=== PATIENT | male | born 2005 | race Caucasian/White ===

== ENCOUNTER 2024-07-12 16:41 | Emergency (ER) | payer OTHER, BC ==
[~2024-07-12] VITALS: Ht 185.4 cm; Wt 78.0 kg
[2024-07-12] MEDS ORDERED: IBUPROFEN 600 MG TAB PO ONE (17:30)
[2024-07-12 18:20] VITALS: BP 145/83
== END 2024-07-12 18:21 | disposition home or self-care (01) ==
LOC: ED 16:41
DX: S43.402A Unspecified sprain of left shoulder joint, initial encounter (principal); X50.0XXA Overexertion from strenuous movement or load, initial encounter
CPT/HCPCS: 73030; 99283; A9270

== ENCOUNTER 2024-10-24 08:10 | Day surgery (SDC) | payer OTHER, BC ==
--- NOTE | 2024-10-19 09:03 | NUR ---
PHONE CALL TO PT WENT TO [facility]ICE [facility]IL, LEFT MESSAGE. [phone].
--- NOTE | 2024-10-20 11:08 | NUR ---
PHONE CALL TO [phone] LEFT MESSAGE WITH ALL INFORMATION ON WHAT IS NEEDED BEFORE SURGERY. TIME, SHOWER AND NPO AFTER MIDNIGHT ON THE 10-23-24. AND THAT INCLUDES NO SMOKING , GUM, OR CANDY. THEY MAY COME BY THE HOSPITAL TO THE YARD TRUCK DRIVER AND RFID MANAGER SOME HIBICLENS TO SHOWER WITH THE MORNING OF SURGERY.
[~2024-10-24] VITALS: Ht 185.4 cm; Wt 79.5 kg
[~2024-10-24 08:10] MED LIST: ADDERALL 20 MG20 MG PO; CEFAZOLIN SODIUM 2 GM/20 ML SYR IV SCH; DEXAMETHASONE SOD PHOS 4 MG/ML VIAL ONE; ESMOLOL HCL 100 MG/10 ML VIAL IV ONE; IBLOOD GLUCOSE TEST STRIP 1 EA TEST VI PRN; LACTATED RINGER'S 1,000 ML IV SCH; LIDOCAINE HCL 1% 5 ML SDV INJ ONE; LIDOCAINE HCL 2% 20 MG/ML VIAL INJ ONE; MIDAZOLAM HCL 2 MG/2 ML VIAL ONE; Ropivacaine HCl 0.5% 30 ML VIAL ONE; TRANEXAMIC ACID 1,000 MG/10 ML AMP ONE; TRANEXAMIC ACID IN NACL,ISO-OS 1,000 MG/100 ML PIGGYBACK IV SCH; fentaNYL citrate 100 MCG/2 ML VIAL ONE; ondansetron HCL 4 MG/2 ML VIAL ONE; propofoL 200 MG/20 ML VIAL ONE
[2024-10-24 08:30] VITALS: BP 132/81
[2024-10-24] MEDS ORDERED: HYDROCODONE/ACETA 7.5/325 TAB PO PRN (09:15)
[2024-10-24] MEDS ORDERED: ACETAMINOPHEN 1,000 MG/100 ML VIAL ONE (09:53)
[2024-10-24] MEDS ORDERED: IBLOOD GLUCOSE TEST STRIP 1 EA TEST VI PRN (10:15)
[2024-10-24] MEDS ORDERED: PROCHLORPERAZINE EDISYLATE 10 MG/2 ML VIAL IV PRN (10:15)
[2024-10-24] MEDS ORDERED: NALOXONE HCL 0.4 MG SYR IV PRN (10:15)
[2024-10-24] MEDS ORDERED: droPERidol 5 MG/2 ML VIAL IV PRN (10:15)
[2024-10-24] MEDS ORDERED: fentaNYL citrate 50 MCG/ML SDV IV PRN (10:15)
[2024-10-24] MEDS ORDERED: ondansetron HCL 4 MG/2 ML VIAL IV PRN (10:15)
[2024-10-24] MEDS ORDERED: HYDROmorphone HCL 1 MG/ML SYR IV PRN (10:15)
[2024-10-24] MEDS ORDERED: HYDROCODON-ACE1 EA11 PO (10:29)
[2024-10-24] MEDS ORDERED: CELECOXIB200 MG PO (10:29)
--- NOTE | 2024-10-24 10:38 | NUR ---
10/24/24 Laura Antony PATIENT ARRIVES IN PACU UNRESPONSIVE TO JAW THRUST. ATTEMPT TO RELEASE HOLD ON JAW RESULTS IN OBSTRUCTION. WILLIAM MEYERS IS HOLDING PATIENT'S JAW.
[2024-10-24] MEDS ORDERED: SEVOFLURANE 250 ML BTL INH ONE (10:48)
--- NOTE | 2024-10-24 11:09 | NUR ---
PT ARRIVES TO DS UNIT FROM PACU VIA STRETCHER. PT REPORTS NUMBNESS IN LFT ARM, ABLE TO SLIGHTLY MOVE FINGER, BUT UNABLE TO MOVE ARM. PT IS DROWSY, BUT ASKING APPROPRIATE QUESTIONS AT THIS TIME. PT ON RA W/O2 >90% VIA PULSE OX, RESPIRATIONS EVEN AND UNLABORED, NO SIGNS OF DISTRESS. CALL LIGHT WITHIN REACH, MOTHER AT BEDSIDE, REPORT RECEIVED FROM LEO THOMAS, SURGICAL SITES VISUALIZED W/LEO THOMAS.
[2024-10-24 11:14] VITALS: BP 122/58
--- NOTE | 2024-10-24 11:50 | NUR ---
IN PT ROOM FOR PAIN ASSESSMENT. PT STATES PAIN IS TOLERABLE AT THIS TIME, CMS INTACT, PT UNABLE TO LIFT ARM AT THIS TIME D/T NUMBNESS, CONTINUES TO BE ABLE TO WIGGLE A COUPLE FINGERS. PT CONSUMED ALL OF PUDDING AND CRACKERS AND CONTINUES TO DRINK ICE WATER. PT STATES NO FURTHER NEEDS OR QUESTIONS AT THIS TIME. CALL LIGHT WITHIN REACH, MOTHER AT BEDSIDE.
--- NOTE | 2024-10-24 12:05 | NUR ---
IN PT ROOM FOR VS AND ASSESSMENT. PT STATES PAIN REMAINS TOLERABLE. PT GETTING DRESSED W/MOTHER ASSISTANCE. CALL LIGHT WITHIN REACH.
--- NOTE | 2024-10-24 12:20 | NUR ---
THIS RN IN ROOM FOR DC EDUCATION AND ASSISTANCE W/SLING PLACEMENT POST GETTING DRESSED. PT STATES VERBAL UNDERSTANDING TO DC EDUCATION AT THIS TIME, MOTHER AT BEDSIDE. PT IV DC'ED. PT OFF OF UNIT VIA WC TO PASSENGER SIDE OF VEHICLE. ALL BELONGINGS IN PT POSSESSION AT THIS TIME INCLUDING PROVIDED CRYO CUFF. PT STATES NO FURTHER NEEDS AT THIS TIME.
[2024-10-24 14:00] VITALS: BP 110/53
[2024-10-24] MEDS ORDERED: CELECOXIB 200 MG CAP PO SCH (17:00)
--- NOTE | 2024-10-28 06:53 | OR ---
[facility] [address], [place] [address] Signed DATE OF OPERATION: 10/24/2024 SURGEON: Sri Rodney MD PREOPERATIVE DIAGNOSIS: Recurrent dislocation, left shoulder. POSTOPERATIVE DIAGNOSIS: Recurrent dislocation, left shoulder. PROCEDURE PERFORMED: Left shoulder arthroscopy with Bankart repair. SCHOOL PHOTOGRAPH EDITOR: None. ANESTHESIA: General. BLOOD LOSS: Minimal. IMPLANTS: Two Arthrex PushLock anchors. BRIEF HISTORY: Adolfo is a 19-year-old gentleman with recurrent injuries to his shoulder. He had significant laxity. MRI was consistent with a Bankart tear. Risks, benefits, and alternatives were discussed of surgery and he elected to proceed. Once consent was obtained, he was taken to the operating room. After adequate anesthesia, he was placed in the beach chair position. All downside pressure points were well padded. The left shoulder was prepped and draped in a standard sterile fashion. The shoulder was injected with 15 mL of 0.25% Marcaine as was the subacromial space. Standard posterior portal was established, and the scope was introduced in the shoulder. ARTHROSCOPIC FINDINGS: Mild synovitis was noted throughout with some hemosiderin staining. The labrum was noted to be torn from the 3 o'clock to the 6 o'clock position. The biceps, biceps anchor, and superior labrum were intact. The glenohumeral surfaces were intact. The rotator cuff was intact. Electronically Signed By: SRI RODNEY MD 10/28/24 0653 PATIENT NAME: ADOLFO COOPER OPERATIVE REPORT DATE OF : [birth year] REPORT #: [id number] PHYSICIAN: SRI RODNEY MD PCP: SRI MADRID MD REPORT IS CONFIDENTIAL AND NOT TO BE RELEASED WITHOUT AUTHORIZATION [facility] [address], [place] [address] Signed DESCRIPTION OF PROCEDURE: Standard anterior portal was established using an outside in technique. The edge of the glenoid was then debrided using the shaver and the labrum was freed up using the labral elevator from the 6 o'clock position all the way to the 3 o'clock. This was done all the way around to the scapular neck. The labrum was much more mobile with this. He did have some capsular insufficiency as well. Then, using the right hand Passer, we took a bite of the anterior inferior capsule about the 05:30 position, and then through the labral tissue coming out along the anterior margin of the glenoid. This was then brought out through the anterior cannula and a looped FiberTape was then placed around it. This was then placed through itself in a Lasso technique. The drill guide for the Bio PushLock was then placed at about the 05:00-05:30 position and the glenoid was drilled. The Bio PushLock was then loaded and placed up to the drill hole. It was then tensioned appropriately and impacted until it was seated flush. It was then driven into the bone with excellent fixation. The store operations manager was removed and the sutures were cut. It was an excellent bumper affect inferiorly. The second anchor was placed about 6 mm superior to this. This was done in the same fashion. Again, an excellent bumper effect. The water was then turned off, and we got excellent bleeding from both anchors. The scope was then withdrawn. Portals were closed with 3-0 nylon and dressed with Allevyn and OpSite. He tolerated the procedure well. All sponge, needle, and instrument counts were correct. Sri Rodney MD BA/GLADYSL /[id number] Copies: ~ Electronically Signed By: SRI RODNEY MD 10/28/24 0653 PATIENT NAME: ADOLFO COOPER OPERATIVE REPORT DATE OF : 04 REPORT #: [id number] PHYSICIAN: SRI RODNEY MD PCP: SRI MADRID MD REPORT IS CONFIDENTIAL AND NOT TO BE RELEASED WITHOUT AUTHORIZATION
== END 2024-10-24 12:25 | disposition home or self-care (01) ==
LOC: DS 08:10
PROVIDERS: ATTEND Specialist
PROC: 0LM24ZZ Reattachment of Left Shoulder Tendon, Percutaneous Endoscopic Approach (ICD-10-PCS; principal; 2024-10-24 09:30)
DX: M24.412 Recurrent dislocation, left shoulder (principal)
CPT/HCPCS: 01630; 64415; 76942; C1713; J0131; J0690; J1100; J2250; J2405; J2704; J2795; J3010; J7121

== ENCOUNTER 2025-03-09 17:46 | Emergency (ER) | payer OTHER, BC ==
[~2025-03-09] VITALS: Ht 185.4 cm; Wt 73.6 kg
[~2025-03-09 17:46] MED LIST changes: -CEFAZOLIN SODIUM 2 GM/20 ML SYR IV SCH; +CELECOXIB200 MG PO; -DEXAMETHASONE SOD PHOS 4 MG/ML VIAL ONE; -ESMOLOL HCL 100 MG/10 ML VIAL IV ONE; +HYDROCODON-ACE1 EA11 PO; -IBLOOD GLUCOSE TEST STRIP 1 EA TEST VI PRN; -LACTATED RINGER'S 1,000 ML IV SCH; -LIDOCAINE HCL 1% 5 ML SDV INJ ONE; -LIDOCAINE HCL 2% 20 MG/ML VIAL INJ ONE; -MIDAZOLAM HCL 2 MG/2 ML VIAL ONE; -Ropivacaine HCl 0.5% 30 ML VIAL ONE; -TRANEXAMIC ACID 1,000 MG/10 ML AMP ONE; -TRANEXAMIC ACID IN NACL,ISO-OS 1,000 MG/100 ML PIGGYBACK IV SCH; -fentaNYL citrate 100 MCG/2 ML VIAL ONE; -ondansetron HCL 4 MG/2 ML VIAL ONE; -propofoL 200 MG/20 ML VIAL ONE
[2025-03-09 18:00] LABS: BASOPHILS 0.4 % (0.2-1.2); EOSINOPHILS 2.4 % (0.8-7.0); HEMATOCRIT 42.2 % (40.1-51.0); HEMOGLOBIN 14.6 g/dL (13.7-17.5); LYMPHOCYTES 37.3 % (21.8-53.1); MCH 29.4 PG (25.7-32.2); MCHC 34.6 g/dL (32.3-36.5); MCV 84.9 fL (79.0-92.2); MONOCYTES 5.7 % (5.3-12.2); NEUTROPHILS 54.1 % (34.0-67.9); PLATELET COUNT 208 K/uL (163-337); RBC 4.97 M/uL (4.63-6.08)
[2025-03-09] MEDS ORDERED: SODIUM CHLORIDE 0.9% 1,000 ML IV PRN (18:00)
[2025-03-09 18:07] LABS: PH, VENOUS 7.423 (7.31-7.41)
[2025-03-09 18:18] LABS: ALBUMIN/GLOBULIN RATIO 1.43 (1.1-2.4); ANION GAP 14.3 (7-21); BILIRUBIN, TOTAL 0.8 mg/dL (0.2-1.0); BUN/CREATININE RATIO 9.27 (6.0-28.6); CALCIUM 9.4 mg/dL (8.5-10.1); CREATININE, SERUM 1.51 mg/dL (0.70-1.30); POTASSIUM 3.3 mmol/L (3.5-5.1); PROTEIN, TOTAL 6.8 g/dL (6.4-8.2)
[2025-03-09 19:31] VITALS: BP 147/90
--- NOTE | 2025-03-10 11:20 | EKG ---
[facility] [address] [facility] [place] [address] Signed Normal sinus rhythm with sinus arrhythmia Normal ECG No previous ECGs available Confirmed by Maday Jackson MD ([id number]) on 03/10/2025 11:19:56 AM Electronically Signed By: MADAY JACKSON MD 03/10/25 1120 PATIENT NAME: LAKIA COOPER Electrocardiogram DATE OF : 04 PHYSICIAN: MADAY JACKSON MD REPORT #: [id number] REPORT IS CONFIDENTIAL AND NOT TO BE RELEASED WITHOUT AUTHORIZATION
== END 2025-03-09 19:33 | disposition home or self-care (01) ==
LOC: ED 17:46
PROVIDERS: Emergency Medicine
DX: T67.5XXA Heat exhaustion, unspecified, initial encounter (principal); X58.XXXA Exposure to other specified factors, initial encounter
CPT/HCPCS: 36415; 80053; 82375; 82803; 84484; 85025; 93005; 93010; 99284